=== PATIENT | male | born 1985 | race Asian ===

== ENCOUNTER → 2019-04-13 | Outpatient (CLI) | payer OTHER ==
[2019-04-13 12:48] LABS: BASOPHIL % 0.5 % (0-2); PLATELET COUNT 232 x10^3mcL (130-400)
[2019-04-13 13:18] LABS: ALBUMIN 4.2 g/dL (3.4-5.0); ALKALINE PHOSPHATASE 61 U/L (46-116); ALT/SGPT 68 U/L (16-63); AST/SGOT 29 U/L (15-37); BILIRUBIN TOTAL 0.5 mg/dL (0.20-1.00); CALCIUM 9.1 mg/dL (8.5-10.1); CARBON DIOXIDE 29.9 mmol/L (21-32); CHLORIDE SERUM 106 mmol/L (98-107); CHOLESTEROL 178 mg/dL (<200); CHOLESTEROL/HDL RATIO 3.1; CREATININE SERUM 0.9 mg/dL (0.7-1.3); GFR1 > 60 mL/min; GLUCOSE SERUM 100 mg/dL (74-106); HDL CHOLESTEROL 58 mg/dL (40-60); POTASSIUM SERUM 4.5 mmol/L (3.5-5.1); SODIUM SERUM 144 mmol/L (136-145); TOTAL PROTEIN, SERUM 7.6 g/dL (6.4-8.2); TRIGLYCERIDES 30 mg/dL (<150)
[2019-04-14 04:06] LABS: MUMPS AB IGG 85.9 AU/mL (Immune >10.9)
== END | disposition home or self-care (01) ==
LOC: LB 11:42
PROVIDERS: Internal Medicine
DX: Z00.00 Encounter for general adult medical examination without abnormal findings (principal)

== ENCOUNTER → 2019-04-20 | Outpatient (CLI) | payer OTHER | END | disposition home or self-care (01) | LOC: LB 12:54 | DX: R74.0 Nonspecific elevation of levels of transaminase and lactic acid dehydrogenase [LDH] (principal) ==

== ENCOUNTER → 2019-11-16 | Outpatient (CLI) | payer OTHER ==
[2019-11-16 08:22] LABS: ALBUMIN 4.2 g/dL (3.4-5.0); ALKALINE PHOSPHATASE 54 U/L (46-116); ALT/SGPT 35 U/L (16-63); AST/SGOT 20 U/L (15-37); BILIRUBIN DIRECT 0.07 mg/dL (0.0-0.2); BILIRUBIN TOTAL 0.4 mg/dL (0.20-1.00); CALCIUM 9.1 mg/dL (8.5-10.1); CARBON DIOXIDE 30.9 mmol/L (21-32); CHLORIDE SERUM 104 mmol/L (98-107); GFR1 > 60 mL/min; GLUCOSE SERUM 102 mg/dL (74-106); HDL CHOLESTEROL 48 mg/dL (40-60); POTASSIUM SERUM 4.4 mmol/L (3.5-5.1); SODIUM SERUM 141 mmol/L (136-145); TOTAL PROTEIN, SERUM 7.6 g/dL (6.4-8.2); TRIGLYCERIDES 91 mg/dL (<150)
[2019-11-16 08:26] LABS: CHOLESTEROL 303 mg/dL (<200); CHOLESTEROL/HDL RATIO 6.3
== END | disposition home or self-care (01) ==
LOC: LB 07:17
PROVIDERS: ATTEND Internal Medicine
DX: E78.5 Hyperlipidemia, unspecified (principal)

== ENCOUNTER → 2019-11-28 | Outpatient (CLI) | payer OTHER | END | disposition home or self-care (01) | LOC: US 17:30 | PROVIDERS: ATTEND Internal Medicine | PROC: BW40ZZZ Ultrasonography of Abdomen (ICD-10-PCS; principal; 2019-11-28) | DX: R74.0 Nonspecific elevation of levels of transaminase and lactic acid dehydrogenase [LDH] (principal) | CPT/HCPCS: Q0092 ==

== ENCOUNTER → 2019-12-29 | Outpatient (CLI) | payer OTHER ==
[2019-12-29 09:50] LABS: ALBUMIN 4.6 g/dL (3.4-5.0); BILIRUBIN DIRECT 0.15 mg/dL (0.0-0.2); BILIRUBIN TOTAL 0.9 mg/dL (0.20-1.00); CHOLESTEROL/HDL RATIO 4.7; TOTAL PROTEIN, SERUM 7.6 g/dL (6.4-8.2)
== END | disposition home or self-care (01) ==
LOC: LB 09:12
PROVIDERS: ATTEND Internal Medicine
DX: E78.5 Hyperlipidemia, unspecified (principal)